=== PATIENT | male | born 1950 | race Caucasian/White ===

== ENCOUNTER 2017-01-30 14:33 | Emergency (ER) | payer OTHER, MEDICAID ==
[~2017-01-30] VITALS: Ht 172.7 cm; Wt 77.1 kg
[2017-01-30] MEDS ORDERED: NACL 0.9% 1,000 ML IV ONE (15:01)
[2017-01-30 15:31] LABS: BASOPHILS % (AUTO) 0.4 % (0.0-2.0); EOSINOPHILS % (AUTO) 0.5 % (0.0-4.0); HEMATOCRIT 41.2 % (36-54); HEMOGLOBIN 13.6 g/dL (14.0-18.0); LYMPHOCYTES % (AUTO) 17.9 % (20.5-51.5); MEAN CORPUSCULAR HEMOGLOBIN 31 pg (27-31); MEAN CORPUSCULAR HGB CONC 33 % (32-36); MEAN CORPUSCULAR VOLUME 94 fL (79.0-98.0); MONOCYTES # (AUTO) 0.4 K/uL (0.0-1.0); MONOCYTES % (AUTO) 7.8 % (1.7-9.3); NEUTROPHILS # (AUTO) 4.4 K/uL (1.8-7.7); NEUTROPHILS % (AUTO) 73.4 % (40.0-70.0); PLATELET COUNT (AUTO) 225 K/uL (130-430); RED CELL DISTRIBUTION WIDTH 12.1 % (9.0-15.0); WHITE BLOOD COUNT (AUTO) 5.8 K/uL (4.8-10.8)
[2017-01-30 15:36] LABS: CALCIUM 8.9 mg/dL (8.4-11.0); CREATININE 1.25 mg/dL (0.55-1.30)
[2017-01-30 15:40] LABS: ALBUMIN 3.5 g/dL (3.4-4.8); TOTAL BILIRUBIN 0.6 mg/dL (0.0-1.0)
[2017-01-30 15:53] VITALS: BP_SYST 104
[2017-01-30 17:50] VITALS: BP_SYST 110
== END 2017-01-30 17:50 | disposition home or self-care (01) ==
LOC: SED 14:33
DX: B34.9 Viral infection, unspecified (principal); R05 Cough; E11.9 Type 2 diabetes mellitus without complications; I10 Essential (primary) hypertension; E78.5 Hyperlipidemia, unspecified; Z95.1 Presence of aortocoronary bypass graft; Z90.89 Acquired absence of other organs
CPT/HCPCS: 36415; 80053; 85025; 86710; 99284

== ENCOUNTER 2022-07-29 19:13 | Emergency (ER) | payer MEDICAID, MEDICARE, OTHER ==
[~2022-07-29] VITALS: Ht 177.8 cm; Wt 77.6 kg
[2022-07-29 19:23] VITALS: BP_SYST 188
--- NOTE | 2022-07-29 20:10 | NUR ---
Patient arrived to ED 6 for c/o left toe pain for 2 weeks. Patient said that he "hurt it a few weeks ago." Patient noted to have left foot splint and wrap. Alert and oriented x4. No neuro deficits. Respiration even and unlabored. No c/o pain. Will continue to monitor. BP noted to be elevated upon arrival. Dr. Delcid at bedside to MSE patient.
--- NOTE | 2022-07-29 20:41 | NUR ---
eladio, patient's son, called regarding blood pressure medication issue because patient has elevated blood pressure at the moment.
[2022-07-29] MEDS ORDERED: INSU100V7 SUBCUT (20:48)
[2022-07-29] MEDS ORDERED: CLOP75TA32 PO (20:48)
[2022-07-29] MEDS ORDERED: FINA5TAB3 PO (20:48)
[2022-07-29] MEDS ORDERED: METF-379 PO (20:48)
[2022-07-29] MEDS ORDERED: ASPI-1393 PO (20:48)
[2022-07-29] MEDS ORDERED: METO25TA3 PO (20:48)
[2022-07-29] MEDS ORDERED: LIP40 PO (20:48)
--- NOTE | 2022-07-29 20:49 | NUR ---
ER at bedside examining patient.
[2022-07-29] MEDS ORDERED: IBUP-1969 PO (21:00)
[2022-07-29] MEDS ORDERED: SULF1TAB48 PO (21:00)
[2022-07-29] MEDS ORDERED: METOPROLOL SUCCINATE 25 MG TAB.SR.24H (TOPROL XL) PO ONE (21:00)
--- NOTE | 2022-07-29 21:54 | NUR ---
Patient given written and verbal discharge instructions and verbalizes understanding. ER MD discussed with patient the results and treatment provided. Patient in stable condition. ID arm band removed. Rx of BACTRIM AND IBUPROFEN given. Patient educated on pain management and to follow up with PMD. Pain Scale 0/10 Opportunity for questions provided and answered. Medication side effect fact sheet provided.
[2022-07-29 21:55] VITALS: BP_SYST 142
== END 2022-07-29 21:55 | disposition home or self-care (01) ==
LOC: SED 19:13
DX: S91.102A Unspecified open wound of left great toe without damage to nail, initial encounter (principal); L03.032 Cellulitis of left toe; E11.9 Type 2 diabetes mellitus without complications; I10 Essential (primary) hypertension; E78.5 Hyperlipidemia, unspecified; Z79.4 Long term (current) use of insulin; Z79.899 Other long term (current) drug therapy; X58.XXXA Exposure to other specified factors, initial encounter; Y93.89 Activity, other specified; Y92.89 Other specified places as the place of occurrence of the external cause; Y99.8 Other external cause status
CPT/HCPCS: 82962; 99283